=== PATIENT | male | born 1960 | race Caucasian/White ===

== ENCOUNTER 2018-11-11 15:38 | Emergency (ER) | payer OTHER ==
--- NOTE | 2018-11-11 17:01 | EDM.PDOC ---
ED HPI GENERAL MEDICAL PROBLEM - General Chief Complaint: Lower Extremity Injury/Pain Stated Complaint: RT ANKLE INJURY Time Seen by Provider: 11/11/18 16:19 Source of Information: Reports: Patient History Limitations: Reports: No Limitations - History of Present Illness INITIAL COMMENTS - FREE TEXT/NARRATIVE: 58 yo M comes in for pain and swelling of R ankle after rolling it while walking down steps just [employer]. He thinks he internally rotated the ankle when he rolled it and is now having swelling and pain to the lateral aspect of his R ankle. He rates the pain 5/10. He did take ibuprofen and put ice on the injury which seemed to help. He is able to weight bear, but it makes the pain worse, and does c/o some numbness/tingling in his toes. He denies falling or hitting his head. No other complaints at this time. Right Ankle Pain Score (Numeric/FACES): 5 - Related Data Allergies Allergy/AdvReac Type Severity Reaction Status Date / Time No Known Allergies Allergy Verified 11/11/18 15:50 Home Meds: Home Meds Losartan [Cozaar] 50 mg PO DAILY 11/11/18 [History] Past Medical History Cardiovascular History: Reports: High Cholesterol, Hypertension Social & Family History - Tobacco Use Smoking Status *Q: Never Smoker - Recreational Drug Use Recreational Drug Use: No Review of Systems - Review of Systems Review Of Systems: ROS reveals no pertinent complaints other than HPI. ED EXAM, GENERAL - Physical Exam Exam: See Below Exam Limited By: No Limitations General Appearance: Alert, WD/WN, No Apparent Distress Eye Exam: Bilateral Eye: EOMI, Normal Inspection, PERRL Ears: Normal External Exam, Hearing Grossly Normal Head: Atraumatic, Normocephalic Neck: Normal Inspection, Supple, Non-Tender, Full Range of Motion Respiratory/Chest: No Respiratory Distress, Lungs Clear, Normal Breath Sounds, No Accessory Muscle Use, Chest Non-Tender Cardiovascular: Normal Peripheral Pulses, Regular Rate, Rhythm, No Edema, No Gallop, No JVD, No Murmur, No Rub Peripheral Pulses: 3+: Posterior Tibial (L), Posterior Tibial (R), Dorsalis Pedis (L), Dorsalis Pedis (R) Extremities: Normal Range of Motion, Non-Tender, No Pedal Edema, Normal Capillary Refill, Joint Swelling (R ankle), Limited Range of Motion (R ankle s/ p injury), Increased Warmth (R ankle) Psychiatric: Normal Affect, Normal Mood Skin Exam: Warm, Dry, Intact, Erythema (R ankle), Increased Warmth (R ankle) Course - Vital Signs Last Recorded V/S: Last Vital Signs Temp 98.4 F 11/11/18 15:48 Pulse 80 11/11/18 15:48 Resp 16 11/11/18 15:48 BP 144/96 H 11/11/18 15:48 Pulse Ox 95 11/11/18 15:48 - Orders/Labs/Meds Orders: Active Orders 24 hr Category Date Time Status Ankle 2V Rt [CR] Stat Exams 11/11/18 15:51 Taken - Re-Assessments/Exams Free Text/Narrative Re-Assessment/Exam: 11/11/18 15:51 R ankle Xray ordered 11/11/18 16:[address] High and myself, no acute injury seen. Departure - Departure Time of Disposition: 16:58 Disposition: Home, Self-Care 01 Condition: Fair Clinical Impression: Sprained ankle - Discharge Information *PRESCRIPTION DRUG MONITORING PROGRAM REVIEWED*: Not Applicable *COPY OF PRESCRIPTION DRUG MONITORING REPORT IN PATIENT MILAGROS: Not Applicable Instructions: Crutch Use, Adult, [id number], Ankle Sprain, [id number], Walking Boot, Adult Referrals: Frankie Britt MD [Primary Care Provider] - Forms: ED Department Discharge Additional Instructions: You were seen in the ED today for right ankle pain and swelling after rolling your ankle on some stairs. Your Xray did not show any fractures. At this time, you are stable to send home with walking boot and crutches. Recommend using crutches and remaining non-weight bearing for 4-5 days. Continue rest, ice, compression with DELMY wrap as needed, and elevation as well as over the counter ibuprofen for pain and swelling relief. If not better in 14 days, recommend follow up with orthopedic Dr. Huerta, as you likely have a soft tissue/ligament injury. You make have weakness of your ankle for up to 9 months. You can make an appointment with him by calling . Please return to ED if new or worsening symptoms. - My Orders Last 24 Hours: My Active Orders 11/11/18 15:51 Ankle 2V Rt [CR] Stat - Assessment/Plan Last 24 Hours: My Active Orders 11/11/18 15:51 Ankle 2V Rt [CR] Stat
--- NOTE | 2018-11-12 08:41 | CR ---
Right ankle: Two views of the right ankle were obtained. Comparison: No prior ankle study. Ankle mortise is symmetric. No discrete fracture is seen on this exam. Small spur is noted at the attachment of the Achilles tendon to the calcaneus. No additional abnormality is seen. Impression: 1. Incidental calcaneal spur. 2. Nothing acute is appreciated on two-view right ankle exam. Diagnostic code #2
== END 2018-11-11 17:15 | disposition home or self-care (01) ==
LOC: JD.ED 15:38
DX: S93.401A Sprain of unspecified ligament of right ankle, initial encounter (principal); I10 Essential (primary) hypertension; Z79.899 Other long term (current) drug therapy; W10.9XXA Fall (on) (from) unspecified stairs and steps, initial encounter
CPT/HCPCS: 73600-26-RT; 73600-RT; 99282; 99283-25

== ENCOUNTER 2021-12-28 09:43 | Day surgery (SDC) | payer BC ==
[~2021-12-28 09:43] MED LIST: Lactated Ringers 1,000 ML IV SCH; Lidocaine 1%/Sod Bicarbonate in NS 8.4% 1 ML Syringe IDERM PRN; Sodium Chloride 0.9% 10 ML Syringe FLUSH PRN; Sodium Chloride 0.9% 10 ML Syringe FLUSH SCH
[2021-12-28] MEDS ORDERED: Midazolam 1 MG/ML 2 ML SDV ONE (10:38)
[2021-12-28] MEDS ORDERED: fentaNYL 100 MCG/2 ML SDV ONE (10:38)
[2021-12-28] MEDS ORDERED: Propofol 200 MG/20 ML SDV ONE ×2 (10:38→11:01)
[2021-12-28] MEDS ORDERED: ePHEDrine 50 MG/ML SDV ONE (10:41)
[2021-12-28] MEDS ORDERED: Lidocaine 1% 4 ML ONE (11:27)
== END 2021-12-28 12:40 | disposition home or self-care (01) ==
LOC: JD.SDS 09:43
PROVIDERS: ATTEND Surgery
DX: Z12.11 Encounter for screening for malignant neoplasm of colon (principal); K63.5 Polyp of colon; K21.9 Gastro-esophageal reflux disease without esophagitis; R13.10 Dysphagia, unspecified; K64.4 Residual hemorrhoidal skin tags; K31.89 Other diseases of stomach and duodenum; K21.00 Gastro-esophageal reflux disease with esophagitis, without bleeding; E78.00 Pure hypercholesterolemia, unspecified; I10 Essential (primary) hypertension; Z79.899 Other long term (current) drug therapy; Z98.890 Other specified postprocedural states
CPT/HCPCS: 43239; 45380; J2250; J2704; J3010; J7120

== ENCOUNTER 2024-04-25 20:01 | Emergency (ER) | payer BC ==
[2024-04-25 21:37] LABS: BASOPHILS PERCENT AUTO 0.4 % (0.0-1.0); EOSINOPHILS ABSOLUTE AUTO 0.2 K/mm3 (0.0-0.4); EOSINOPHILS PERCENT AUTO 2.1 % (0.0-6.0); HEMATOCRIT 42.2 % (42.0-52.0); HEMOGLOBIN 14.7 gm/dl (14.0-18.0); IMMATURE GRAN ABSOLUTE AUTO 0.02 K/mm3 (0.00-0.05); IMMATURE GRAN PERCENT AUTO 0.3 % (0.0-0.4); LYMPHOCYTES ABSOLUTE AUTO 1.4 K/mm3 (1.0-4.8); LYMPHOCYTES PERCENT AUTO 19.1 % (24.0-44.0); MEAN CORPUSCULAR HEMOGLOBIN 29.8 pg (28.0-32.0); MEAN CORPUSCULAR HGB CONC 34.8 g/dl (32.0-36.0); MEAN CORPUSCULAR VOLUME 85.4 fl (83.0-99.0); MEAN PLATELET VOLUME 9.5 fl (9.4-12.4); MONOCYTES PERCENT AUTO 12.8 % (0.0-8.0); NEUTROPHILS ABSOLUTE AUTO 4.9 K/mm3 (1.8-7.7); NEUTROPHILS PERCENT AUTO 65.3 % (41.0-71.0); PLATELET COUNT,PLT 249 K/mm3 (150-400); RED BLOOD CELL COUNT 4.94 M/mm3 (4.52-5.90); WHITE BLOOD CELL COUNT,WBC 7.48 K/mm3 (3.9-11.3)
[2024-04-25] MEDS: Losartan 50 MG Tab PO ONE (21:46)
[2024-04-25] MEDS: Sodium Chloride 0.9% 10 ML Syringe FLUSH PRN (21:46)
[2024-04-25 22:04] LABS: A/G RATIO 1.1 (1-2); ALBUMIN 3.7 g/dl (3.4-5.0); ANION GAP 12.8 (5-15); BILIRUBIN TOTAL 0.8 mg/dL (0.2-1.0); BUN/CREATININE RATIO 13.3 (14-18); CALCIUM 8.6 mg/dL (8.5-10.1); CREATININE 1.2 mg/dL (0.7-1.3); EST CRCL DRUG DOSING (CG) 67.98 mL/min; POTASSIUM,K 3.8 mEq/L (3.5-5.1); TSH 2.217 uIU/mL (0.358-3.74)
== END 2024-04-25 23:06 | disposition home or self-care (01) ==
LOC: JD.ED 20:01
DX: I11.9 Hypertensive heart disease without heart failure (principal); E78.00 Pure hypercholesterolemia, unspecified; Z79.899 Other long term (current) drug therapy
CPT/HCPCS: 36415; 71046; 80053; 84443; 84484; 85025; 93005; 99284; A9270; J3490; 93010; 99283